=== PATIENT | male | born 1955 | race Caucasian/White ===

== ENCOUNTER 2023-12-14 11:59 | Outpatient (CLI) | payer MEDICARE, OTHER ==
[2023-12-14 14:11] LABS: #Basophils 0.03 10x3/uL (0.0-0.2); #Eosinphils 0.23 10x3/uL (0.0-0.5); #Monocytes 0.71 10x3/uL (0.0-1.1); #Neutrophils 5.26 10x3/uL (1.5-8.4); %Basophils 0.4 % (0.0-2.0); %Eosinophils 2.8 % (0.0-6.0); %Lymphocytes 24.1 % (18.0-47.0); %Monocytes 8.6 % (0.0-10.0); %Neutrophils 63.9 % (40.0-75.0); Hematocrit 40.3 % (38.8-50.0); Hemoglobin 12.9 g/dL (13.5-17.5); Mean Corpuscular Hemoglobin 29.7 pg (27.0-33.0); Mean Corpuscular Volume 92.6 fL (81.2-95.1); Mean Platelet Volume 11.8 fL (7.4-10.4); Platelet Count 192 10x3/uL (150-450); RBC Distribution Width 13.9 % (11.5-14.5); Red Blood Cell (RBC) Count 4.35 10x6/uL (4.32-5.72); White Blood Cell (WBC) Count 8.2 10x3/uL (3.5-10.5)
[2023-12-14 14:17] LABS: Anion Gap 12 mmol/L (10-20); BUN (Urea Nitrogen) 9 mg/dL (8.4-25.7); Calc. Creatinine Clearance 0 mL/min (70-130); Calcium 9.7 mg/dL (7.8-10.44); Carbon Dioxide 29 mmol/L (23-31); Chloride 102 mmol/L (98-107); Estimated GFR 96; Glucose 86 mg/dL (80-115); Potassium 3.9 mmol/L (3.5-5.1); Sodium 139 mmol/L (136-145)
== END 2023-12-14 12:00 | disposition home or self-care (01) ==
LOC: CSHLAB 11:59
PROVIDERS: ATTEND Specialist
DX: Z01.818 Encounter for other preprocedural examination (principal); D17.23 Benign lipomatous neoplasm of skin and subcutaneous tissue of right leg
CPT/HCPCS: 71046; 80048; 85025; 93005; 93010

== ENCOUNTER → 2023-12-17 | Day surgery (SDC) | payer MEDICARE, OTHER ==
[2023-12-14 12:37] VITALS: BMI 50.2
[~2023-12-17] MED LIST: Acetaminophen 500 MG TAB ONE; Bupivacaine/Epinephrine 0.25% 30 ML VIAL ONE; CEFAZOLIN 2 GM VIAL ONE; Dexamethasone 20 MG/5 ML VIAL ONE; Fentanyl 250 MCG/5 ML VIAL ONE; Glycopyrrolate 0.2 MG/ML 5 ML SYRINGE ONE; HYDROcodone/Acetaminophen 5/325 mg Tablet ONE; Ketorolac Tromethamine 30 MG (1 mL) VIAL ONE; Lidocaine 1% PF 5 ML VIAL ONE; Mupirocin 2% Ointment 22 GM Tube TOP SCH; Ondansetron PF 4 MG/2 ML Vial ONE; PHENYLEPHRINE-NS 100 MCG/ML 10 ML SYRINGE ONE; PROPOFOL 60 ML ONE; SUGAMMADEX SODIUM 200 MG/2 ML VIAL ONE; ePHEDrine Sulfate 50 MG/10 ML VIAL ONE
== END ==
LOC: CSHSDC 07:10
PROVIDERS: ATTEND Specialist
PROC: 0JBL0ZZ Excision of Right Upper Leg Subcutaneous Tissue and Fascia, Open Approach (ICD-10-PCS; principal; 2023-12-17)
DX: D17.23 Benign lipomatous neoplasm of skin and subcutaneous tissue of right leg (principal); I10 Essential (primary) hypertension; E78.00 Pure hypercholesterolemia, unspecified; Z79.899 Other long term (current) drug therapy
CPT/HCPCS: 27339; J1100; J1885; J2405; J2704; J3010; 88304